=== PATIENT | male | born 2000 | race Hispanic/Latino ===

== ENCOUNTER 2022-12-06 10:36 | Emergency (ER) | payer OTHER ==
[~2022-12-06] VITALS: Ht 170.2 cm; Wt 87.8 kg
[2022-12-06 13:41] LABS: GC DNA AMPLIFICATION NEGATIVE (NEGATIVE)
[2022-12-06 13:50] VITALS: BP 134/77; TEMP 97.6; O2SAT 100
== END 2022-12-06 13:51 | disposition home or self-care (01) ==
LOC: M ED 10:36
DX: N50.812 Left testicular pain (principal)